=== PATIENT | male | born 1975 | race Caucasian/White ===

== ENCOUNTER 2022-02-26 16:48 | Inpatient (IN) ==
[2022-02-26] MEDS ORDERED: levETIRAcetam 1,000 MG in 0.9 % SODIUM CHLORIDE 100 ML IV STA (16:51)
[2022-02-26] MEDS ORDERED: LORazepam 2 MG/1 ML VIAL IV STA (16:51)
[2022-02-26] MEDS ORDERED: SODIUM CHLORIDE 0.9% 1000ML 1,000 ML IV SCH (17:00)
--- NOTE | 2022-02-26 17:12 | Emergency Department Note ---
Impression & Plan New onset seizure, Acute alteration in mental status ED Provider Note NAME: THANH JEFFERSON AGE: 46 SEX: M : 1975 ARRIVES VIA: Ambulance INFORMANT: Patient's family member, EMS ED PROVIDER(S): Villa Lee DO CHIEF COMPLAINT: Seizure HPI: The patient is a 46-year-old male who has a history of diabetes and hypertension who presented to the emergency department for an evaluation after having a seizure. The patient does not have a history of seizures. He was working in his garage when he had an episode of seizure. This was witnessed by family members. 911 was called and the patient was evaluated by the division supervisor. The patient was found to have difficulty with answering questions. He appeared to be postictal. He had another seizure prior to arrival and was treated with Versed 5 mg. The patient had a nasal airway in place. The patient had sonorous respirations and could not give any history. The patient's sister did present to the emergency department with him and does give part of the history. The pa tient has had no trauma. He was working on a car and is [employer] but the car was reportedly not running. There were no sick contacts. The patient does not have a history of seizures either previous to this episode or related to any drug or alcohol use. ROS: See above HPI for pertinent positives & negatives. A total of 10 systems reviewed and were otherwise negative. PAST MEDICAL HISTORY: See Below PAST SURGICAL HISTORY: See Below FAMILY HISTORY: See Below SOCIAL HISTORY: See Below HOME MEDICATIONS: See Below ALLERGIES: See Below VITALS: See Below PHYSICAL EXAMINATION: GENERAL: The patient is obtunded. He does not answer questions or follow commands. EYES: The conjunctivae are clear. The pupils are dilated and minimally reactive to light bilaterally. EARS, NOSE, MOUTH AND THROAT: The nose is without any evidence of any deformity. Nasal airway is in place. NECK: The neck is nontender and supple. RESPIRATORY: Shallow respirations were noted. Diminished breath sounds are noted throughout. CARDIOVASCULAR: Regular rate and rhythm noted there no murmurs rubs or gallops normal S1 normal S2. GASTROINTESTINAL: The abdomen is soft. Abdomen is nontender. MUSCULOSKELETAL/EXTREMITIES: There is no evidence of gross deformity full range of motion is noted in the hips and shoulders. SKIN: Skin is warm and dry. There was no significant pedal edema. NEUROLOGIC: Patient is obtunded. He does not answer questions or follow commands. Patellar tendon reflexes 1+ bilaterally. MEDICAL DECISION MAKING: The patient is a 46-year-old male who presented to the emergency department for an evaluation of altered mental status and seizure. The patient's sister does give part of the history. Apparently the patient was in his garage and wanted to smoke some marijuana. He approached his sister who provided him with a pipe. The patient was smoking the marijuana when he had an episode of seizure. 911 was called. The patient was brought to the emergency department. He had a seizure on route and was treated with Versed 5 mg. He had another episode of seizure in the emergency department and was treated with Ativan. He was loaded with Keppra. I discussed patient's laboratory and radiographic studies with his sister. Given his findings I discussed his case with the on-call [facility]. They have agreed to evaluate the patient in the emergency department for further management and disposition. Triage Nursing notes reviewed. Prior medical records reviewed Vital Signs: reviewed and remarkable for no significant abnormalities Differential diagnosis: Epilepsy, infection, hypoglycemia, electrolyte abnormalities, cardiac sources, intracerebral event, trauma, toxicologic, neurologic, syncope, as well as other pathologies. ER treatment provided: See below Diagnostics interpreted by me: ECG: EKG was obtained in the emergency department. My interpretation is normal sinus rhythm at 80 bpm. There is no ectopy. There is no acute ST segment abnormalities noted. Possible delta wave was noted. This was compared to a tracing from April 25, 2019. The delta wave is new compared to the earlier tracing. Otherwise no change was noted. Cardiac Monitoring: An order was placed for continuous cardiac monitoring. The monitor shows a rate of 88 bpm with sinus rhythm. Laboratory studies: As stated above and show below. Imaging studies: See below Consultation(s): I discussed this case with Dr. English who is on-call for the [facility] group. ED COURSE: Procedures: none Critical Care: I have personally spent greater than 35 minutes of critical care time in the direct management of this patient. This includes bedside care, interpretation of diagnostic studies, and testing, discussion with consultants, patient, and family members, and other required patient management activities. This 35 mi nutes is in excess of all separately billable procedures. Past Med/Surg History Medical History Cancer Chronic cholecystitis (12/26/12) Chronic nonalcoholic liver disease (12/26/12) Diabetes Esophageal reflux (12/26/12) Gastroparesis (12/26/12) Heart disease High blood pressure Hypertension Hypertrophy tonsils (12/26/12) Kidney disease (12/26/12) Lung disease Pneumonia Pulmonary collapse (12/26/12) Rib injury Skin problem Stomach problems Syncope and collapse (12/26/12) Surgical History History of cholecystectomy (12/26/12) Family History Other Cancer Diabetes Heart disease Hypertension Lung disease Social History Smoking Status: Unknown if ever smoked Feels Safe at Home: Yes Allergies Allergies Allergy/AdvReac Type Severity Reaction Status Date / Time metoclopramide Allergy Mild "LOOPY" Verified 12/26/12 22:16 ketorolac Allergy CATCHES ON Verified 02/24/13 01:47 FIRE morphine Allergy CATCHES ON Verified 04/25/19 13:04 FIRE Home Meds Home Medications Medication Instructions Recorded Confirmed bupropion HCl 300 mg 24 hr tablet, 300 mg PO QAM 04/25/19 04/25/19 extended release (Wellbutrin XL) cholecalciferol (vitamin D3) 25 1,000 unit PO QAM 04/25/19 04/25/19 mcg (1,000 unit) tablet (Vitamin D3) diclofenac sodium 1 % topical gel 2 g TOPICAL QID PRN 04/25/19 04/25/19 (Voltaren) loratadine 10 mg tablet (Claritin) 10 mg PO DAILY PRN 04/25/19 04/25/19 methocarbamol 750 mg tablet 750 mg PO Q8H PRN 04/25/19 04/25/19 mirtazapine 30 mg tablet 30 mg PO HS 04/25/19 04/25/19 morphine 60 mg tablet,extended 60 mg PO Q12H 04/25/19 04/25/19 release (MS Contin) naproxen 500 mg tablet 500 mg PO BID PRN 04/25/19 04/25/19 omeprazole 20 mg capsule,delayed 20 mg PO QAM 04/25/19 04/25/19 release ondansetron HCl 8 mg tablet 8 mg PO Q8H PRN 04/25/19 04/25/19 (Zofran) prazosin 5 mg capsule 10 mg PO HS 04/25/19 04/25/19 pregabalin 300 mg capsule (Lyrica) 300 mg PO QAM 04/25/19 04/25/19 ranitidine HCl 300 mg tablet 300 mg PO HS 04/25/19 04/25/19 (Zantac) topiramate 50 mg tablet 50 mg PO BID 04/25/19 04/25/19 venlafaxine 75 mg capsule,extended 225 mg PO QAM 04/25/19 04/25/19 release 24 hr (Effexor XR) Results & Data (ED) Vital Signs Vital Signs - 24 hr 02/26/22 17:16 Sepsis Recent Fever Within 48 Hours No Sepsis New/Unexplained Change in Mental Status N/A Sepsis Action Taken by Nursing No Action Required Home Medications Current Medication List: was personally reviewed by me Laboratory Data Attestation: I reviewed the patient's lab results. Result diagrams: 02/26/22 16:57 02/26/22 16:57 Lab Results 02/26/22 02/26/22 02/26/22 Range/Units 16:55 16:57 16:57 WBC 8.67 (4.8-10.8) K/uL RBC 4.42 L (4.7-6.1) M/uL Hgb 13.1 L (14.0-18.0) g/dL Hct 37.8 L (42-52) % MCV 85.5 (80-100) fL MCH 29.6 (25-34) pg MCHC 34.7 (32-36) g/dL RDW Std Deviation 42.2 (36.4-46.3) fL RDW Coeff of [place] 13.5 (11.5-14.5) % Plt Count 298 (130-400) K/uL MPV 10.9 H (7.4-10.4) fL Immature Gran % (Auto) 0.6 % Neut % (Auto) 62.8 % Lymph % (Auto) 28.8 % [place] % (Auto) 6.5 % Eos % (Auto) 0.7 % Baso % (Auto) 0.6 % Neut # (Auto) 5.45 (1.4-6.5) K/uL Lymph # (Auto) 2.50 (1.2-3.4) K/uL [place] # (Auto) 0.56 (0.11-0.59) K/uL Eos # (Auto) 0.06 (0-0.5) K/uL Baso # (Auto) 0.05 (0-0.2) K/uL Immature Gran # (Auto) 0.05 H (0.00-0.02) K/uL VBG pH (7.36-7.41) VBG pCO2 (38-50) mmHg VBG pO2 mmHg VBG HCO3 mmol/L VBG O2 Saturation % VBG Base Excess mEq/L Carboxyhemoglobin % THgb Barometric Pressure mm/Hg Sodium 138 (136-145) mmol/L Potassium 3.8 (3.5-5.1) mmol/L Chloride 108 H (98-107) mmol/L Carbon Dioxide 22 (21-32) mmol/L Anion Gap 8 (3-11) BUN 15 (6-23) mg/dl Creatinine 1.72 H (0.6-1.4) mg/dl Est Cr Clr Drug Dosing Not Reportable Est GFR ( Amer) 53.3 ml/min Est GFR (Non-Af Amer) 46.0 ml/min BUN/Creatinine Ratio 8.7 L (10-20) Glucose 98 (70-99(Fasting)) mg/dl POC Glucose 99 (70-99) mg/dl Lactate (0.4-2.0) mmol/L Calcium 9.5 (8.5-10.1) mg/dl Phosphorus 2.7 (2.5-4.9) mg/dl Magnesium 2.0 (1.7-2.4) mg/dl Total Bilirubin 0.5 (0.2-1.0) mg/dl AST 30 (13-39) U/L ALT 43 (7-52) U/L Alkaline Phosphatase 83 (34-104) U/L Total Creatine Kinase 183 (30-223) U/L Total Protein 6.8 (6.0-8.3) gm/dl Albumin 4.5 (3.4-5.0) gm/dl Globulin 2.3 L (2.5-4.0) gm/dl Albumin/Globulin Ratio 2.0 (0.9-2) Urine Color Urine Appearance (Clear) Urine pH (4.5-7.5) Ur Specific Kirkman (1.000-1.030) Urine Protein (Negative) Urine Glucose (UA) (Negative) Urine Ketones (Negative) Urine Blood (Negative) Urine Nitrite (Negative) Urine Bilirubin (Negative) Urine Urobilinogen (Negative) Ur Leukocyte Esterase (Negative) Urine WBC (Auto) (0-5) /hpf Urine RBC (Auto) (0-4) /hpf U Hyaline Cast (Auto) (0-5) /lpf U Epithel Cells (Auto) (0-5) /lpf Urine Bacteria (Auto) (Negative) Granular Casts (0) /lpf Urine Mucus (None Prsent) Urine Opiates Screen (Neg) Ur Methadone, Qual (Neg) Urine Barbiturates (Neg) Ur Phencyclidine (PCP) (Neg) U Amphetamin/Meth Scrn (Neg) MDMA (Ecstasy) Screen (Neg) U Benzodiazepines Scrn (Neg) Ur Cocaine Metabolite (Neg) U Marijuana (THC) Screen (Neg) Ethyl Alcohol mg/dL (<10.0) mg/dl 02/26/22 02/26/22 02/26/22 Range/Units 16:57 17:03 17:03 WBC (4.8-10.8) K/uL RBC (4.7-6.1) M/uL Hgb (14.0-18.0) g/dL Hct (42-52) % MCV (80-100) fL MCH (25-34) pg MCHC (32-36) g/dL RDW Std Deviation (36.4-46.3) fL RDW Coeff of [place] (11.5-14.5) % Plt Count (130-400) K/uL MPV (7.4-10.4) fL Immature Gran % (Auto) % Neut % (Auto) % Lymph % (Auto) % [place] % (Auto) % Eos % (Auto) % Baso % (Auto) % Neut # (Auto) (1.4-6.5) K/uL Lymph # (Auto) (1.2-3.4) K/uL [place] # (Auto) (0.11-0.59) K/uL Eos # (Auto) (0-0.5) K/uL Baso # (Auto) (0-0.2) K/uL Immature Gran # (Auto) (0.00-0.02) K/uL VBG pH (7.36-7.41) VBG pCO2 (38-50) mmHg VBG pO2 mmHg VBG HCO3 mmol/L VBG O2 Saturation % VBG Base Excess mEq/L Carboxyhemoglobin % THgb Barometric Pressure mm/Hg Sodium (136-145) mmol/L Potassium (3.5-5.1) mmol/L Chloride (98-107) mmol/L Carbon Dioxide (21-32) mmol/L Anion Gap (3-11) BUN (6-23) mg/dl Creatinine (0.6-1.4) mg/dl Est Cr Clr Drug Dosing Est GFR ( Amer) ml/min Est GFR (Non-Af Amer) ml/min BUN/Creatinine Ratio (10-20) Glucose (70-99(Fasting)) mg/dl POC Glucose (70-99) mg/dl Lactate (0.4-2.0) mmol/L Calcium (8.5-10.1) mg/dl Phosphorus (2.5-4.9) mg/dl Magnesium (1.7-2.4) mg/dl Total Bilirubin (0.2-1.0) mg/dl AST (13-39) U/L ALT (7-52) U/L Alkaline Phosphatase (34-104) U/L Total Creatine Kinase (30-223) U/L Total Protein (6.0-8.3) gm/dl Albumin (3.4-5.0) gm/dl Globulin (2.5-4.0) gm/dl Albumin/Globulin Ratio (0.9-2) Urine Color Dark Yellow Urine Appearance Clear (Clear) Urine pH 5.5 (4.5-7.5) Ur Specific Kirkman 1.032 H (1.000-1.030) Urine Protein Trace H (Negative) Urine Glucose (UA) Negative (Negative) Urine Ketones Trace H (Negative) Urine Blood Negative (Negative) Urine Nitrite Negative (Negative) Urine Bilirubin 1+ H (Negative) Urine Urobilinogen Negative (Negative) Ur Leukocyte Esterase Negative (Negative) Urine WBC (Auto) 1-5 (0-5) /hpf Urine RBC (Auto) 0-4 (0-4) /hpf U Hyaline Cast (Auto) 10-30 H (0-5) /lpf U Epithel Cells (Auto) 20-30 H (0-5) /lpf Urine Bacteria (Auto) Negative (Negative) Granular Casts 1-5 H (0) /lpf Urine Mucus Present A (None Prsent) Urine Opiates Screen Neg (Neg) Ur Methadone, Qual Neg (Neg) Urine Barbiturates Neg (Neg) Ur Phencyclidine (PCP) Neg (Neg) U Amphetamin/Meth Scrn Pos H (Neg) MDMA (Ecstasy) Screen Pos H (Neg) U Benzodiazepines Scrn Neg (Neg) Ur Cocaine Metabolite Neg (Neg) U Marijuana (THC) Screen Neg (Neg) Ethyl Alcohol mg/dL < 10.0 (<10.0) mg/dl 02/26/22 02/26/22 02/26/22 Range/Units 17:05 17:05 17:05 WBC (4.8-10.8) K/uL RBC (4.7-6.1) M/uL Hgb (14.0-18.0) g/dL Hct (42-52) % MCV (80-100) fL MCH (25-34) pg MCHC (32-36) g/dL RDW Std Deviation (36.4-46.3) fL RDW Coeff of [place] (11.5-14.5) % Plt Count (130-400) K/uL MPV (7.4-10.4) fL Immature Gran % (Auto) % Neut % (Auto) % Lymph % (Auto) % [place] % (Auto) % Eos % (Auto) % Baso % (Auto) % Neut # (Auto) (1.4-6.5) K/uL Lymph # (Auto) (1.2-3.4) K/uL [place] # (Auto) (0.11-0.59) K/uL Eos # (Auto) (0-0.5) K/uL Baso # (Auto) (0-0.2) K/uL Immature Gran # (Auto) (0.00-0.02) K/uL VBG pH 7.34 L (7.36-7.41) VBG pCO2 43 (38-50) mmHg VBG pO2 39 mmHg VBG HCO3 23 mmol/L VBG O2 Saturation 67.4 % VBG Base Excess -3.1 mEq/L Carboxyhemoglobin 0.0 % THgb Barometric Pressure 732.5 mm/Hg Sodium (136-145) mmol/L Potassium (3.5-5.1) mmol/L Chloride (98-107) mmol/L Carbon Dioxide (21-32) mmol/L Anion Gap (3-11) BUN (6-23) mg/dl Creatinine (0.6-1.4) mg/dl Est Cr Clr Drug Dosing Est GFR ( Amer) ml/min Est GFR (Non-Af Amer) ml/min BUN/Creatinine Ratio (10-20) Glucose (70-99(Fasting)) mg/dl POC Glucose (70-99) mg/dl Lactate 1.4 (0.4-2.0) mmol/L Calcium (8.5-10.1) mg/dl Phosphorus (2.5-4.9) mg/dl Magnesium (1.7-2.4) mg/dl Total Bilirubin (0.2-1.0) mg/dl AST (13-39) U/L ALT (7-52) U/L Alkaline Phosphatase (34-104) U/L Total Creatine Kinase (30-223) U/L Total Protein (6.0-8.3) gm/dl Albumin (3.4-5.0) gm/dl Globulin (2.5-4.0) gm/dl Albumin/Globulin Ratio (0.9-2) Urine Color Urine Appearance (Clear) Urine pH (4.5-7.5) Ur Specific [place] (1.000-1.030) Urine Protein (Negative) Urine Glucose (UA) (Negative) Urine Ketones (Negative) Urine Blood (Negative) Urine Nitrite (Negative) Urine Bilirubin (Negative) Urine Urobilinogen (Negative) Ur Leukocyte Esterase (Negative) Urine WBC (Auto) (0-5) /hpf Urine RBC (Auto) (0-4) /hpf U Hyaline Cast (Auto) (0-5) /lpf U Epithel Cells (Auto) (0-5) /lpf Urine Bacteria (Auto) (Negative) Granular Casts (0) /lpf Urine Mucus (None Prsent) Urine Opiates Screen (Neg) Ur Methadone, Qual (Neg) Urine Barbiturates (Neg) Ur Phencyclidine (PCP) (Neg) U Amphetamin/Meth Scrn (Neg) MDMA (Ecstasy) Screen (Neg) U Benzodiazepines Scrn (Neg) Ur Cocaine Metabolite (Neg) U Marijuana (THC) Screen (Neg) Ethyl Alcohol mg/dL (<10.0) mg/dl Administered Medications Discontinued Medications Sodium Chloride (Nss 1000ml) 1,000 mls @ 999 mls/hr IV .[id number] JACQUI Stop: 02/26/22 18:00 Last Infusion: 02/26/22 17:56 Dose: 0 mls/hr Documented by: [id number] Admin: 02/26/22 16:56 Dose: 999 mls/hr Documented by: [id number] Levetiracetam 1,000 mg/ Sodium (Chloride) 100 mls @ 440 mls/hr IV NOW STA Stop: 02/26/22 17:04 Last Infusion: 02/26/22 17:56 Dose: 0 mls/hr Documented by: [id number] Admin: 02/26/22 17:28 Dose: 440 mls/hr Documented by: [id number] Levetiracetam 1,000 mg/ Sodium (Chloride) 110 mls @ 440 mls/hr IV NOW ONE Stop: 02/26/22 17:29 Last Infusion: 02/26/22 17:28 Dose: 0 mls/hr Documented by: [id number] Admin: 02/26/22 17:05 Dose: 440 mls/hr Documented by: [id number] Lorazepam (Lorazepam 2 Mg/1 Ml Vial) 1 mg IV NOW STA Stop: 02/26/22 16:52 Last Admin: 02/26/22 16:56 Dose: 1 mg Documented by: [id number] Imaging Data Radiologist's Impression: Cervical Spine CT 02/26/22 16:51 CT cervical spine wo con CLINICAL HISTORY: sz . Neck pain COMPARISON STUDY: No previous studies for comparison. CT DOSE: 1180.23 mGy.cm TECHNIQUE: Standard CT of the Cervical Spine was performed without IV contrast. A dose lowering technique was utilized adhering to the principles of ALARA. FINDINGS: Bones: There is no evidence for an acute fracture or malalignment. The heights of the vertebral bodies are maintained. The vertebral bodies are in anatomic alignment. The odontoid is intact and the atlantoaxial articulation is within normal limits. Disc spaces: The disc space heights are maintained. Apophyseal joints: The apophyseal joints are intact bilaterally. Soft tissues: The prevertebral soft tissues are within normal limits. IMPRESSION: 1. Negative CT of the cervical spine. ACT 112: Negative or not required by law. Electronically signed by: Siddharth Arriaza M.D. 02/26/2022 5:[address] 02/26/22 16:51 CT head/brain wo con CLINICAL HISTORY: Seizure. Pain. COMPARISON STUDY: 08/24/2009 CT DOSE: TECHNIQUE: Standard CT of the Brain was performed without IV contrast. A dose lowering technique was utilized adhering to the principles of ALARA. FINDINGS: Extraaxial space: There is no evidence for subdural hematoma. There are no extra-axial fluid collections. Ventricles and cisterns: The ventricles are normal in size and configuration. There is no evidence for midline shift or mass effect. Parenchyma: There is no subarachnoid or intraparenchymal hemorrhage. There is no evidence for an acute infarct or cerebral edema. There is homogeneous attenuation of the brain parenchyma. There are no gross mass lesions. Osseous structures: There is no evidence for an acute fracture. The visualized paranasal sinuses are clear. The mastoid air cells are clear bilaterally. Soft tissues: There is no evidence for focal soft tissue swelling. IMPRESSION: 1. No acute intracerebral pathology. ACT 112: Negative or not required by law. Electronically signed by: Siddharth Arriaza M.D. 02/26/2022 5:34 PM Chest X-Ray 02/26/22 17:06 XR chest 1V portable CLINICAL HISTORY: sz. . Evaluate cardiopulmonary status COMPARISON STUDY: 04/25/2019 TECHNIQUE: 1 view of the chest FINDINGS: Single frontal view of the chest demonstrates the cardiomediastinal silhouette to be within normal limits. There is a decreased inspiratory effort with elevation of the hemidiaphragms and crowding of the bronchovascular markings at the lung bases and centrally. The lungs are clear of alveolar opacities. There is no evidence for pleural effusion. There is no evidence for vascular con gestion. There is no acute osseous pathology. IMPRESSION: 1. There is a decreased inspiratory effort with otherwise no acute chest disease. ACT 112: Negative or not required by law. Electronically signed by: Siddharth Arriaza M.D. 02/26/2022 5:49 PM Discharge Plan Visit Data Chief Complaint: Unresponsive ED Provider: Villa Lee Discharge Problem: New onset seizure, Acute alteration in mental status Patient Disposition: Home - Self-Care Forms Stand Alone Forms: My [facility], Virtual Emergency Department, Important Visit Information Prescriptions Prescriptions: No Action venlafaxine [Effexor XR] 75 mg Capsule,Extended Release 24hr 225 mg PO QAM RF: 0 ranitidine HCl [Zantac] 300 mg Tablet 300 mg PO HS RF: 0 ondansetron HCl [Zofran] 8 mg Tablet 8 mg PO Q8H PRN (Reason: Nausea) RF: 0 prazosin 5 mg Capsule 10 mg PO HS RF: 0 methocarbamol 750 mg Tablet 750 mg PO Q8H PRN (Reason: Muscle Spasm) RF: 0 morphine [MS Contin] 60 mg Tablet Extended Release 60 mg PO Q12H RF: 0 mirtazapine 30 mg Tablet 30 mg PO HS RF: 0 omeprazole 20 mg Capsule,Delayed Release(Dr/Ec) 20 mg PO QAM RF: 0 loratadine [Claritin] 10 mg Tablet 10 mg PO DAILY PRN (Reason: Allergy Symptoms) RF: 0 naproxen 500 mg Tablet 500 mg PO BID PRN (Reason: Pain) RF: 0 bupropion HCl [Wellbutrin XL] 300 mg Tablet Extended Release 24 Hr 300 mg PO QAM RF: 0 topiramate 50 mg Tablet 50 mg PO BID RF: 0 Lyrica 300 mg Capsule 300 mg PO QAM RF: 0 cholecalciferol (vitamin D3) [Vitamin D3] 1,000 unit Tablet 1,000 unit PO QAM RF: 0 diclofenac sodium [Voltaren] 1 % Gel 2 g TOPICAL QID PRN (Reason: Pain) RF: 0 Referrals Referrals: PCP,NO [Primary Care Provider] -
[2022-02-26] MEDS ORDERED: levETIRAcetam 1,000 MG in 0.9 % SODIUM CHLORIDE 100 ML IV ONE (17:15)
[2022-02-26 17:22] LABS: Appearance Urine Clear (Clear); Bacteria Urine Automated Negative (Negative); Blood Urine Negative (Negative); Color Urine Dark Yellow; Epithelial Cell Urine Auto 20-30 /lpf (0-5); Glucose Urine UA Negative (Negative); Ketones Urine Trace (Negative); Leukocyte Esterase Urine Negative (Negative); Nitrite Urine Negative (Negative); Protein Urine Trace (Negative); RBC Urine Automated 0-4 /hpf (0-4); Specific Gravity Urine 1.032 (1.000-1.030); Urobilinogen Urine Negative (Negative); pH Urine 5.5 (4.5-7.5)
[2022-02-26 17:22] LABS: Base Excess VBG -3.1 mEq/L; Oxygen Saturation VBG 67.4 %; pH VBG 7.34 (7.36-7.41)
[2022-02-26 17:32] LABS: Basophils # (auto) 0.05 K/uL (0-0.2); Basophils % (auto) 0.6 %; Eosinophils # (auto) 0.06 K/uL (0-0.5); Eosinophils % (auto) 0.7 %; Hematocrit (blood only) 37.8 % (42-52); Hemoglobin 13.1 g/dL (14.0-18.0); Immature Granulocytes # (auto) 0.05 K/uL (0.00-0.02); Immature Granulocytes % (auto) 0.6 %; Lymphocytes % (auto) 28.8 %; Mean Corpuscular Hemoglobin 29.6 pg (25-34); Mean Corpuscular Hgb Conc 34.7 g/dL (32-36); Mean Corpuscular Volume 85.5 fL (80-100); Mean Platelet Volume 10.9 fL (7.4-10.4); Monocytes # (auto) 0.56 K/uL (0.11-0.59); Monocytes % (auto) 6.5 %; Neutrophils # (auto) 5.45 K/uL (1.4-6.5); Neutrophils % (auto) 62.8 %; Platelet Count 298 K/uL (130-400); RDW Coefficient of Variation 13.5 % (11.5-14.5); RDW Standard Deviation 42.2 fL (36.4-46.3); Red Blood Count 4.42 M/uL (4.7-6.1); White Blood Count 8.67 K/uL (4.8-10.8)
[2022-02-26 17:34] LABS: Bilirubin Urine 1+ (Negative)
--- NOTE | 2022-02-26 17:36 | CT Scan Report ---
CT head/brain wo con CLINICAL HISTORY: Seizure. Pain. COMPARISON STUDY: 08/24/2009 CT DOSE: TECHNIQUE: Standard CT of the Brain was performed without IV contrast. A dose lowering technique was utilized adhering to the principles of ALARA. FINDINGS: Extraaxial space: There is no evidence for subdural hematoma. There are no extra-axial fluid collecti ons. Ventricles and cisterns: The ventricles are normal in size and configuration. There is no evidence fo r midline shift or mass effect. Parenchyma: There is no subarachnoid or intraparenchymal hemorrhage. There is no evidence for an acut e infarct or cerebral edema. There is homogeneous attenuation of the brain parenchyma. There are no g ross mass lesions. Osseous structures: There is no evidence for an acute fracture. The visualized paranasal sinuses are clear. The mastoid air cells are clear bilaterally. Soft tissues: There is no evidence for focal soft tissue swelling. IMPRESSION: 1. No acute intracerebral pathology. ACT 112: Negative or not required by law. Electronically signed by: Siddharth Arriaza M.D. 02/26/2022 5:34 PM
[2022-02-26 17:38] LABS: Alanine Aminotransferase 43 U/L (7-52); Albumin Level 4.5 gm/dl (3.4-5.0); Alkaline Phosphatase 83 U/L (34-104); Anion Gap 8 (3-11); Aspartate Aminotransferase 30 U/L (13-39); BUN Creatinine Ratio 8.7 (10-20); Bilirubin,Total 0.5 mg/dl (0.2-1.0); Blood Urea Nitrogen 15 mg/dl (6-23); Calcium 9.5 mg/dl (8.5-10.1); Carbon Dioxide 22 mmol/L (21-32); Chloride 108 mmol/L (98-107); Creatine Kinase 183 U/L (30-223); Est GFR (African American) 53.3 ml/min; Globulin 2.3 gm/dl (2.5-4.0); Glucose 98 mg/dl (70-99(Fasting)); Phosphorus 2.7 mg/dl (2.5-4.9); Potassium 3.8 mmol/L (3.5-5.1); Sodium 138 mmol/L (136-145); Total Protein 6.8 gm/dl (6.0-8.3)
[2022-02-26 17:41] LABS: Amphetamines+Metham, Urine Pos (Neg); Barbiturates, Urine Neg (Neg); Benzodiazepine, Urine Neg (Neg); Cocaine, Urine Neg (Neg); MDMA (Ecstacy), Urine Pos (Neg); Methadone, Urine Neg (Neg); Opiate, Urine Neg (Neg); Phencyclidine, Urine Neg (Neg)
--- NOTE | 2022-02-26 17:41 | CT Scan Report ---
CT cervical spine wo con CLINICAL HISTORY: sz . Neck pain COMPARISON STUDY: No previous studies for comparison. CT DOSE: 1180.23 mGy.cm TECHNIQUE: Standard CT of the Cervical Spine was performed without IV contrast. A dose lowering isaiah hnique was utilized adhering to the principles of ALARA. FINDINGS: Bones: There is no evidence for an acute fracture or malalignment. The heights of the vertebral lala s are maintained. The vertebral bodies are in anatomic alignment. The odontoid is intact and the atla ntoaxial articulation is within normal limits. Disc spaces: The disc space heights are maintained. Apophyseal joints: The apophyseal joints are intact bilaterally. Soft tissues: The prevertebral soft tissues are within normal limits. IMPRESSION: 1. Negative CT of the cervical spine. ACT 112: Negative or not required by law. Electronically signed by: Siddharth Arriaza M.D. 02/26/2022 5:39 PM
[2022-02-26 17:48] LABS: Mucus Urine Present (None Prsent)
--- NOTE | 2022-02-26 17:51 | XRay Report ---
XR chest 1V portable CLINICAL HISTORY: sz. . Evaluate cardiopulmonary status COMPARISON STUDY: 04/25/2019 TECHNIQUE: 1 view of the chest FINDINGS: Single frontal view of the chest demonstrates the cardiomediastinal silhouette to be within normal li mits. There is a decreased inspiratory effort with elevation of the hemidiaphragms and crowding of th e bronchovascular markings at the lung bases and centrally. The lungs are clear of alveolar opacities . There is no evidence for pleural effusion. There is no evidence for vascular congestion. There is n o acute osseous pathology. IMPRESSION: 1. There is a decreased inspiratory effort with otherwise no acute chest disease. ACT 112: Negative or not required by law. Electronically signed by: Siddharth Arriaaz M.D. 02/26/2022 5:49 PM
[2022-02-26] MEDS ORDERED: LORazepam 2 MG/1 ML VIAL IV PRN ×2 (18:49→20:27)
--- NOTE | 2022-02-26 19:06 | History & Physical Report ---
Date of Service February 26, 2022 Assessment & Plan (1) Acute alteration in mental status: Plan: Patient presents after inhalation of unknown substance. Reportedly became altered at home and may have had a seizure in his garage without injury but was altered on presentation with seizure witnessed by EMS given midazolam 5 mg in route and lorazepam 1 mg here as well as Keppra load 1000 mg. Family at the bedside cannot provide additional information as medications but d o believe he is off chronic opioids. Patient's family states he took his medicines with a slug of Mountain Dew this morning and was working on his jeep in his garage Patient has no obvious injuries at this time he is protecting his airway is oxygenating well a Dominguez catheter is in place (2) High blood pressure: Plan: By history med reconciliation does not seem to include any antihypertensive medications (3) Diabetes: Plan: Reportedly history of diabetes but patient blood glucose not elevated he will be on ICU hyperglycemic protocol (4) Chronic nonalcoholic liver disease: Plan: LFTs are normal on presentation Plan: SCDs for DVT prevention History of Present Illness Primary Care Provider: NO PCP Old male typically follows with the [facility] system who has a history of fibromyalgia and chronic pain although family believes he has been off of opiates for some time. Medical problems include diabetes and hypertension who presents to the emergency department after ingesting or inhaling what his family believed was marijuana in his garage. His family says he then became unresponsive his family believes he may have had some seizure-like activity. 911 was called. The patient was confused and having difficulty answering questions appearing to be lethargic or at a postictal state. In route the patient reported a seizure with EMS was given Versed 5mg with a nasal airway in place. The patient had sonorous respirations in the ER and cannot give any history after that the patient had an additional milligram event in the emergency department was loaded with Keppra. The family does not believe the patient has a seizure history. CT scan of head neck and chin plain chest x-ray was unremarkable as well as EKG without specific changes. His laboratories are normal and initial lactic acid was not elevated Urine tox screen did show MDMA but the patient said Wellbutrin also positive for amphetamines initially alcohol was negative and COVID test is negative Allergies Allergy/AdvReac Type Severity Reaction Status Date / Time metoclopramide Allergy Mild "LOOPY" Verified 12/26/12 22:16 ketorolac Allergy CATCHES ON Verified 02/24/13 01:47 FIRE morphine Allergy CATCHES ON Verified 04/25/19 13:04 FIRE Home Medications Medication Instructions Recorded Confirmed Type Topamax 02/26/22 History atorvastatin 02/26/22 History bupropion HCl 02/26/22 History duloxetine 02/26/22 History folic acid 02/26/22 History magnesium oxide 02/26/22 History metoprolol tartrate 02/26/22 History omeprazole 02/26/22 History pregabalin 02/26/22 History tizanidine 02/26/22 History Past Med/Surg History Medical History Chronic cholecystitis (12/26/12) Chronic nonalcoholic liver disease (12/26/12) Diabetes Esophageal reflux (12/26/12) Gastroparesis (12/26/12) Heart disease High blood pressure Hypertension Hypertrophy tonsils (12/26/12) Kidney disease (12/26/12) Lung disease Pneumonia Pulmonary collapse (12/26/12) Rib injury Skin problem Stomach problems Syncope and collapse (12/26/12) Surgical History History of cholecystectomy (12/26/12) Family History Other Cancer Diabetes Heart disease Hypertension Lung disease Social History Smoking Status: Unknown if ever smoked Feels Safe at Home: Yes Review of Systems Review of Systems: Unobtainable due to cognitive status Physical Exam Physical Exam: The patient appeared obtunded opens eyes to name nonsensically moves all extremities withdraws to pain Vital signs as documented. Head exam is normocephalic atraumatic There is no snoring respirations Neck is without JVD, thyromegaly, or carotid bruits. Lungs are clear to auscultation, diminished at the bases Cardiac exam, Rhythm is regular.. No murmurs, rubs or gallops. Abdominal exam reveals normal bowel sounds, soft non tender to examination no masses Extremities are nonedematous and both pedal pulses are present no areas of obvious injury from seizures Neurologic exam obtunded opens eyes to his name falls back to sleep easily if his head off the bed withdraws all extremities to pain Skin is multiple areas of tattoos no areas of bruises Results & Data Results & Data ([facility]) Vital Signs (Past 12 Hours) Vital Signs Temp Pulse Pulse Resp BP BP Pulse Ox 02/26/22 18:45 72 20 116/89 93 02/26/22 18:40 72 14 100 02/26/22 18:30 69 11 L 131/90 100 02/26/22 18:20 73 15 100 02/26/22 18:15 71 12 114/74 99 02/26/22 18:10 68 14 99 02/26/22 18:00 72 100 H 14 108/80 131/90 99 02/26/22 17:50 74 19 99 02/26/22 17:45 72 15 106/72 02/26/22 17:40 77 21 99 02/26/22 17:30 74 22 100/65 02/26/22 17:26 82 14 163/123 H 82 L 02/26/22 17:24 100 02/26/22 16:55 98.2 F 90 22 106/57 L 99 02/26/22 16:38 74 20 108/80 98 Diagnostic Findings Cervical Spine CT 02/26/22 16:51 CT cervical spine wo con CLINICAL HISTORY: sz . Neck pain COMPARISON STUDY: No previous studies for comparison. CT DOSE: 1180.23 mGy.cm TECHNIQUE: Standard CT of the Cervical Spine was performed without IV contrast. A dose lowering technique was utilized adhering to the principles of ALARA. FINDINGS: Bones: There is no evidence for an acute fracture or malalignment. The heights of the vertebral bodies are maintained. The vertebral bodies are in anatomic alignment. The odontoid is intact and the atlantoaxial articulation is within normal limits. Disc spaces: The disc space heights are maintained. Apophyseal joints: The apophyseal joints are intact bilaterally. Soft tissues: The prevertebral soft tissues are within normal limits. IMPRESSION: 1. Negative CT of the cervical spine. ACT 112: Negative or not required by law. Electronically signed by: Siddharth Arriaza M.D. 02/26/2022 5:[address] 02/26/22 16:51 CT head/brain wo con CLINICAL HISTORY: Seizure. Pain. COMPARISON STUDY: 08/24/2009 CT DOSE: TECHNIQUE: Standard CT of the Brain was performed without IV contrast. A dose lowering technique was utilized adhering to the principles of ALARA. FINDINGS: Extraaxial space: There is no evidence for subdural hematoma. There are no extra-axial fluid collections. Ventricles and cisterns: The ventricles are normal in size and configuration. There is no evidence for midline shift or mass effect. Parenchyma: There is no subarachnoid or intraparenchymal hemorrhage. There is no evidence for an acute infarct or cerebral edema. There is homogeneous attenuation of the brain parenchyma. There are no gross mass lesions. Osseous structures: There is no evidence for an acute fracture. The visualized paranasal sinuses are clear. The mastoid air cells are clear bilaterally. Soft tissues: There is no evidence for focal soft tissue swelling. IMPRESSION: 1. No acute intracerebral pathology. ACT 112: Negative or not required by law. Electronically signed by: Siddharth Arriaza M.D. 02/26/2022 5:34 PM Chest X-Ray 02/26/22 17:06 XR chest 1V portable CLINICAL HISTORY: sz. . Evaluate cardiopulmonary status COMPARISON STUDY: 04/25/2019 TECHNIQUE: 1 view of the chest FINDINGS: Single frontal view of the chest demonstrates the cardiomediastinal silhouette to be within normal limits. There is a decreased inspiratory effort with elevation of the hemidiaphragms and crowding of the bronchovascular markings at the lung bases and centrally. The lungs are clear of alveolar opacities. There is no evidence for pleural effusion. There is no evidence for vascular congestion. There is no acute osseous pathology. IMPRESSION: 1. There is a decreased inspiratory effort with otherwise no acute chest disease. ACT 112: Negative or not required by law. Electronically signed by: Siddharth Arriaza M.D. 02/26/2022 5:49 PM ECG Additional Comments: EKG shows normal sinus rhythm Code Status & VTE Plan VTE Prophylaxis Plan VTE Prophylaxis will be ordered: Yes PG Care Time/CCT Total # of Minutes Spent Total Time Spent with Patient: Total time spent is greater than 50% in coordination of care (as documented) at patient's floor/unit and/or counseling patient: Coding Level of Care Code 85323 Initial Inpt Care Lvl 3 Diagnoses Acute alteration in mental status R41.82 High blood pressure I10 Diabetes E11.9 Chronic nonalcoholic liver disease K76.9
[2022-02-26] MEDS ORDERED: ACETAMINOPHEN 1000 MG/100 ML IV IV PRN (20:27)
[2022-02-26] MEDS ORDERED: ICU PROTOCOL FOR HYPERGLYCEMIA PRN (20:27)
[2022-02-26] MEDS: NORMOSOL-R 1,000 ML IV SCH (21:07)
--- NOTE | 2022-02-26 22:04 | Critical Care Consultation ---
Date of Consultation February 26, 2022 Assessment & Plan (1) New onset seizure: Impression: 46-year-old male presents to the hospital with altered mental status and witnessed seizure-like activity without prior history. Reportedly inhaled unknown substance, possibly marijuana. Did receive Versed in route and loaded with Keppra in the ED. Patient now somnolent and in ICU for further monitoring at this time. Neuro - Altered mental statuscurrently oriented but remains somnolent on exam. Patient did receive 5 mg Versed total and was loaded with Keppra in the ED which may be contributing to somnolence. Exam negative for hyperreflexia or clonus. Patient did report smoking marijuana in the garage. Doubt carbon monoxide poisoning although patient was working on a car, was reported to be turned off in the garage. UDS positive for amphetamines, MDMA, final pending. CT head and spine negative. EEG pending, follow-up read. Continue Keppra. Follow-up UDS final read, EtOH negative. Follow-up acetaminophen and salicylates. Seizure precautions. Monitor in ICU for now, consider neurology consult if no improvement. Cardiac - HTNcurrently hemodynamically stable. -EKG sinus rhythm, QTC 423 -Continue MTP -Continue to monitor on telemetry Respiratory - No history of pulmonary disease and currently maintaining airway. We will continue to monitor on pulse ox and end-tidal CO2. GI - GERDfamotidine LFTs within normal limits RENAL/LYTES - Creatinine within normal limits, no significant electrolyte abnormalities. Continue to monitor routine BMPs Normosol at 100 mL/h - Strict I's and O's ENDO - DM type IIcurrently euglycemic -Continue with sliding scale. ICU hyperglycemic protocol HEME - H&H stable, monitor routine CBCs ID - No indication for infectious process at this time LINES/IV ACCESS - Peripheral IVs DVT PROPHYLAXIS - SCDs Thank you for allowing us to participate in the care of this patient. Please refer to my attending physician's documentation for any further recommendations. (2) Diabetes: (3) Acute alteration in mental status: (4) Hypertension: (5) GERD (gastroesophageal reflux disease): (6) Syncope and collapse: History of Present Illness Attending Physician: Kendrick English MD History of Present Illness Patient is a 46-year-old male with history of HTN, DM type II, fibromyalgia who presents to the emergency department after being found unresponsive by family members with what appeared to be seizure-like activity after inhaling/ingesting possibly unknown substance or marijuana in his garage. EMS was called and patient was found to be confused, lethargic, with difficulty answering questions. Patient was reported to have seizure-like activity in route to the hospital and was given Versed. He has no known prior history of seizures. UDS positive for MDMA and amphetamines. EtOH negative. Patient was reported to be working on a car in the garage but the car was not running at the time. CT head and cervical spine negative. On arrival to the ICU patient is arousable and appears to be protecting his airway but is rather somnolent and difficult to interview. He is however orien jana. Patient states that he is currently tired but denies headache, dizziness, syncope, recent illness, fevers, sore throat, cough, shortness of breath, chest pain, palpitations, abdominal pain, nausea vomiting or diarrhea. Patient did deny use or ingestion of illicit drugs or alcohol. Allergies Allergy/AdvReac Type Severity Reaction Status Date / Time metoclopramide Allergy Mild "LOOPY" Verified 12/26/12 22:16 ketorolac Allergy CATCHES ON Verified 02/24/13 01:47 FIRE morphine Allergy CATCHES ON Verified 04/25/19 13:04 FIRE Home Medications Medication Instructions Recorded Confirmed Type Topamax 02/26/22 History atorvastatin 02/26/22 History bupropion HCl 02/26/22 History duloxetine 02/26/22 History folic acid 02/26/22 History magnesium oxide 02/26/22 History metoprolol tartrate 02/26/22 History omeprazole 02/26/22 History pregabalin 02/26/22 History tizanidine 02/26/22 History Patient History Medical History (Updated 02/26/22 @ 22:45 by COY Willett) Chronic cholecystitis (12/26/12) Chronic nonalcoholic liver disease (12/26/12) Diabetes Esophageal reflux (12/26/12) Gastroparesis (12/26/12) Heart disease High blood pressure Hypertension Hypertrophy tonsils (12/26/12) Kidney disease (12/26/12) Lung disease Pneumonia Pulmonary collapse (12/26/12) Rib injury Skin problem Stomach problems Syncope and collapse (12/26/12) Surgical History History of cholecystectomy (12/26/12) Family History Other Cancer Diabetes Heart disease Hypertension Lung disease Social History Smoking Status: Never smoker Hx Alcohol Use: No Beliefs That Will Affect Care: None Current Living Situation: Alone Feels Safe at Home: Yes Review of Systems Review of Systems: All systems reviewed & are unremarkable except as noted in HPI & below Physical Exam Constitutional: + obese, cooperative and + lethargic; no acute distress Eyes: PERRL, conjunctivae normal, anicteric sclerae ENMT: external ear and nose normal, oropharynx normal Neck: trachea midline, no thyromegaly Respiratory: normal respiratory effort, lungs clear to auscultation Cardiovascular: RRR, no murmur, no edema Heart Sounds: normal S1 and normal S2 Extremities: normal capillary refill Gastrointestinal (Abdomen): normal bowel sounds, soft, nontender, no hepatosplenomegaly Musculoskeletal: no cyanosis or clubbing, extremities motor strength 5/5 Skin: no rashes, warm and dry Neurologic: PERRL, EOMI, accommodation nl, no face palsy, no dysarthria deep tendon reflexes 2+ bilaterally Motor/Sensory: no tremor Psychiatric: Orientation: oriented x 3 and cooperative Eye Contact: + poor eye contact Results & Data Results & Data ([facility]) Vital Signs (Past 12 Hours) Vital Signs Temp Pulse Pulse Resp BP BP Pulse Ox 02/26/22 21:00 66 13 122/79 96 02/26/22 20:40 36.4 C L 71 16 122/83 100 02/26/22 18:45 72 20 116/89 93 02/26/22 18:40 72 14 100 02/26/22 18:30 69 11 L 131/90 100 02/26/22 18:20 73 15 100 02/26/22 18:15 71 12 114/74 99 02/26/22 18:10 68 14 99 02/26/22 18:00 72 100 H 14 108/80 131/90 99 02/26/22 17:50 74 19 99 02/26/22 17:45 72 15 106/72 02/26/22 17:40 77 21 99 02/26/22 17:30 74 22 100/65 02/26/22 17:26 82 14 163/123 H 82 L 02/26/22 17:24 100 02/26/22 16:55 36.8 C 90 22 106/57 L 99 02/26/22 16:38 74 20 108/80 98 Coding Level of Care Code 37548 Inpt Consult Level 3 Diagnoses Diabetes E11.9 New onset seizure R56.9 Acute alteration in mental status R41.82 Hypertension I10 GERD (gastroesophageal reflux disease) K21.9 Syncope and collapse R55
[2022-02-26] MEDS: FAMOTIDINE 20 MG in SYRINGE 3 ML IV SCH (22:53)
[2022-02-26 23:38] LABS: Acetaminophen < 3 ug/ml (10-30); Salicylate < 3.0 mg/dl (3.0-30)
[2022-02-27 05:53] LABS: BUN Creatinine Ratio 10.8 (10-20); Basophils # (auto) 0.04 K/uL (0-0.2); Basophils % (auto) 0.5 %; Calcium 8.8 mg/dl (8.5-10.1); Creatinine Clr Calc Pharmacy 94.6 ml/min; Eosinophils # (auto) 0.09 K/uL (0-0.5); Est GFR (African American) 90.5 ml/min; Est GFR (Non-African American) 78.1 ml/min; Hematocrit (blood only) 35.2 % (42-52); Hemoglobin 11.8 g/dL (14.0-18.0); Immature Granulocytes # (auto) 0.03 K/uL (0.00-0.02); Immature Granulocytes % (auto) 0.3 %; Lymphocytes # (auto) 2.69 K/uL (1.2-3.4); Lymphocytes % (auto) 30.4 %; Magnesium 2.1 mg/dl (1.7-2.4); Mean Corpuscular Hemoglobin 28.7 pg (25-34); Mean Corpuscular Hgb Conc 33.5 g/dL (32-36); Mean Corpuscular Volume 85.6 fL (80-100); Mean Platelet Volume 10.5 fL (7.4-10.4); Monocytes # (auto) 0.71 K/uL (0.11-0.59); Neutrophils % (auto) 59.8 %; Platelet Count 259 K/uL (130-400); Potassium 3.3 mmol/L (3.5-5.1); RDW Coefficient of Variation 13.7 % (11.5-14.5); RDW Standard Deviation 42.6 fL (36.4-46.3); Red Blood Count 4.11 M/uL (4.7-6.1); White Blood Count 8.86 K/uL (4.8-10.8)
[2022-02-27] MEDS ORDERED: POTASSIUM CHLORIDE CRTAB 20 MEQ TABCR PO STA (06:14)
[2022-02-27] MEDS: NORMOSOL-R 1,000 ML IV SCH (06:36)
[2022-02-27] MEDS: FAMOTIDINE 20 MG in SYRINGE 3 ML IV SCH (07:23)
--- NOTE | 2022-02-27 09:14 | Discharge Summary ---
Date of Service February 27, 2022 Admission HPI Per Admitting Provider Old male typically follows with the [facility] system who has a history of fibromyalgia and chronic pain although family believes he has been off of opiates for some time. Medical problems include diabetes and hypertension who presents to the emergency department after ingesting or inhaling what his family believed was marijuana in his garage. His family says he then became unresponsive his family believes he may have had some seizure-like activity. 911 was called. The patient was confused and having difficulty answering questions appearing to be lethargic or at a postictal state. In route the patient reported a seizure with EMS was given Versed 5mg with a nasal airway in place. The patient had sonorous respirations in the ER and cannot give any history after that the patient had an additional milligram event in the emergency department was loaded with Keppra. The family does not believe the patient has a seizure history. CT scan of head neck and chin plain chest x-ray was unremarkable as well as EKG without specific changes. His laboratories are normal and initial lactic acid was not elevated Urine tox screen did show MDMA but the patient said Wellbutrin also positive for amphetamines initially alcohol was negative and COVID test is negative Admission Exam (Per Admitting) Constitutional + obese, cooperative and + lethargic; no acute distress Eyes PERRL, conjunctivae normal, anicteric sclerae ENMT external ear and nose normal, oropharynx normal Neck trachea midline, no thyromegaly Respiratory normal respiratory effort, lungs clear to auscultation Cardiovascular RRR, no murmur, no edema Heart Sounds: normal S1 and normal S2 Extremities: normal capillary refill Gastrointestinal (Abdomen) normal bowel sounds, soft, nontender, no hepatosplenomegaly Musculoskeletal no cyanosis or clubbing, extremities motor strength 5/5 Skin no rashes, warm and dry Neurologic PERRL, EOMI, accommodation nl, no face palsy, no dysarthria deep tendon reflexes 2+ bilaterally Motor/Sensory: no tremor Psychiatric Orientation: oriented x 3 and cooperative Eye Contact: + poor eye contact Discharge Data Consultations 02/26/22 18:22 ED Decision to Admit Stat 02/26/22 20:27 Consult 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 Carlson is a 46 year old male admitted to the ED on 5/22/22 for possible first time seizure after smoking of what he believed to be marijuana. Within 5-10 minutes of smoking it he lost consciousness and his sister found him, saw seizure like activity and called EMS. In transit, he received 5 mg midazolam. In the ED, he got 1mg lorazepam and was Keppra loaded with 1000mg. He was transferred to ICU for monitoring and was somnolent but oriented. No seizure like activity was observed in the hospital. All home medications were held during admission, with concern for bupropion and duloxetine lowering seizure threshold. Treatment in the ICU included electrolyte and fluid repletion with Plasma-Lyte A, Lovenox for DVT prophylaxis, and famotidine. Urine tox screen was positive for MDMA and amphetamine. Confirmatory tests pending for MDMA and amphetamines to rule out false positive due to bupropion. Tox was negative for THC, ETOH, opiates, methadone, barbituates, benzodiazapines, cocaine, < 3 for salicylates and acetaminophen. Patient denies any recreational drug or alcohol use other than rare marijuana use. CT head showed no acute ischemia, hematoma, hemorrhage, fracture, masses or lesions, edema, or other acute findings. CT cervical spine showed no fractures or acute findings. EKG on 02/26 was sinus rhythm, QTC 423. Home medication dosages were not recorded in the EMR but he states took all home medications as prescribed that morning (atorvastatin 40mg, metoprolol tartrate 50mg, bupropion HCL 300mg, duloxetine unclear dosage patient thinks 3 pills at 50mg, Topamax 50mgBID, pregabalin 300mg, folic acid, magnesium oxide, and omeprazole). He did not take tizanidine which he uses rarely PRN. On day of discharge, 02/27/22, patient has no complaints with no seizure activity or change in mental status. He is stable to be discharged. Recommend restarting all home medications and close outpatient [facility]. Keppra was stopped after initial loading dose in the ED and is not indicated after discharge. Supervising Physician Co-Signing Physician Notes I personally examined the patient and verified all mckinley points of history and exam, discussed case, and agree with decision making with Michelle Nevarez MS4 feeling better back to baseline sister present who also notes that he's at baseline. has been on home meds for years, just tried marijuana last night. also notes that while he feels tired in the morning, he does feel some palpitations later in the day. will be seeing cardiology at [place] in near future - was [place] seeing [place] ro[place] [facility] [place] [facility] [place]. feels up to going home vitals noted nad heent nc at mmm breathing unlabored no accessory muscles good effort skin no rashes no pallor or icterus neuro no focal deficits seizure - baseline seizure threshold lower due to some of his home meds, but clearly (since this was his first and only notable seizure) marijuana (or perhaps if it was laced with something else) lowered to the point of seizing. no structural brain disease noted. discussed risk/benefit w pt and sister - since baseline meds helping, even though they would lower seizure threshold will continue given that we all are in agreement marijuana (or something else laced in it) was the final factor leading to seizure. safe/stable for home. discussed to refrain from marijuana -- or if he truly thought it might be of benefit to PTSD or chronic pain - would be risky but could try again with Rx version so as to ensure there is nothing further in the substance. overall though would rec not ever trying again. 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 follow BP and HR at home. otherwise as above
--- NOTE | 2022-02-27 09:22 | Critical Care Progress Note ---
Date of Service February 27, 2022 Assessment & Plan (1) New onset seizure: (2) Acute alteration in mental status: (3) Recreational drug use: Plan: 46-year-old male with a past medical history of marijuana abuse and tobacco abuse who presented to the hospital due to seizure-like activity. UDS was found positive for amphetamines, MDMA and marijuana. Neurologic: No evidence of seizures currently. He is alert and oriented. CT head and spine negative. EtOH level negative. Will consult neurology. Currently on empiric Keppra. Seizure likely secondary to substance ingestion. Currently holding bupropion and duloxetine as this could lower the seizure threshold. Patient is also notably on Lyrica and tizanidine. Will defer to neurology to consider restarting these medications. Pulmonary: No significant issues at present. Cardiovascular: No issues. Gastrointestinal: Continue famotidine for GERD. Otherwise no issues. Renal: Hypokalemia. Replace per ICU protocol. Infectious disease: No signs of infectious etiology. Hematologic: Mildly worsening anemia likely hemodilutional given fluid resuscitation. Endocrine: Continue sliding scale insulin. Patient with a history of diabetes mellitus type 2 VTE prophylaxis: Lovenox 40 mg subcu daily CODE STATUS: Full Family at bedside: Not available at bedside Disposition: Stable for downgrade out of the ICU Admission and Anticipated Discharge Date Admission Date: February 26, 2022 Subjective Patient seen and examined at the bedside. He is alert and oriented x3. Denies any complaint at present. No headaches, fevers, chills or night sweats. Denies chest pain. Review of Systems Review of Systems: All systems reviewed & are unremarkable except as noted in HPI & below Physical Exam Constitutional: + obese, cooperative and + lethargic; no acute distress Eyes: PERRL, conjunctivae normal, anicteric sclerae ENMT: external ear and nose normal, oropharynx normal Neck: trachea midline, no thyromegaly Respiratory: normal respiratory effort, lungs clear to auscultation Cardiovascular: RRR, no murmur, no edema Heart Sounds: normal S1 and normal S2 Extremities: normal capillary refill Gastrointestinal (Abdomen): normal bowel sounds, soft, nontender, no hepatosplenomegaly Musculoskeletal: no cyanosis or clubbing, extremities motor strength 5/5 Skin: no rashes, warm and dry Neurologic: PERRL, EOMI, accommodation nl, no face palsy, no dysarthria deep tendon reflexes 2+ bilaterally Motor/Sensory: no tremor Psychiatric: Orientation: oriented x 3 and cooperative Results & Data Results & Data ([facility]) Vital Signs (Past 12 Hours) Vital Signs Pulse Resp BP Pulse Ox 02/27/22 08:00 70 15 117/75 96 02/27/22 07:00 68 14 131/76 96 02/27/22 06:45 66 14 99 02/27/22 06:00 66 16 122/78 97 02/27/22 05:00 63 15 112/71 100 02/27/22 04:00 67 18 127/84 99 02/27/22 03:00 62 16 131/70 98 02/27/22 02:00 66 16 113/78 98 02/27/22 01:00 62 15 117/73 99 02/27/22 00:00 68 15 117/75 99 02/26/22 23:00 64 13 118/76 100 02/26/22 22:00 68 22 120/72 97 Coding Level of Care Code 69011 Subseq Hosp Care Lvl 3 Diagnoses New onset seizure R56.9 Acute alteration in mental status R41.82 Recreational drug use F19.90
[2022-02-27] MEDS ORDERED: ENOXAPARIN INJ 40 MG/0.4 ML SYR SQ SCH (09:45)
--- NOTE | 2022-02-27 12:46 | Billing Data ---
Date of Service February 27, 2022 Coding Level of Care Code D/C DAY MANAGEMENT <30 MINS
--- NOTE | 2022-02-27 14:05 | Electrocardiogram Report ---
Test Reason : Blood Pressure : / mmHG Vent. Rate : 080 BPM Atrial Rate : 080 BPM P-R Int : 168 ms QRS Dur : 094 ms QT Int : 380 ms P-R-T Axes : 036 -22 051 degrees QTc Int : 438 ms Normal sinus rhythm Normal ECG When compared with ECG of 25-APR-2019 12:02, Nonspecific T wave abnormality, improved in Anterior leads Confirmed by Villa Hurd [id number] on 02/27/2022 2:05:11 PM Referred By: REFERRED SELF Confirmed By:Villa Hurd
[2022-02-27] MEDS ORDERED: ICU ELECTROLYTE REPLACEMENT PROTOCOL SCH (18:00)
[2022-02-27] MEDS ORDERED: FAMOTIDINE 20 MG TAB PO SCH (21:00)
[2022-03-02 11:07] LABS: Amphetamine Urine, Confirm NEGATIVE ng/mL (<250); MDA negative; MDEA negative; MDMA (Ecstasy) Urine, Confirm negative; Methamphetamine, Ur Confirm NEGATIVE ng/mL (<250)
== END 2022-02-27 13:49 | disposition home or self-care (01) | DRG 101 ==
LOC: ED 16:48 → SUATTDRO 18:26 → 1E 18:26